=== PATIENT | male | born 1975 | race Caucasian/White ===

== ENCOUNTER 2018-09-26 11:34 | Emergency (ER) | payer OTHER ==
[~2018-09-26] VITALS: Ht 177.8 cm; Wt 95.3 kg
[2018-09-26 11:44] VITALS: BP_SYST 110
[2018-09-26] MEDS ORDERED: ONDANSETRON 4 MG ODT TAB PO ONE (12:15)
[2018-09-26] MEDS ORDERED: MORPHINE SULFATE 10 MG/ML VIAL IM ONE (12:15)
[2018-09-26 13:52] VITALS: BP_SYST 110
== END 2018-09-26 13:52 | disposition home or self-care (01) ==
LOC: SED 11:34
DX: S82.392A Other fracture of lower end of left tibia, initial encounter for closed fracture (principal); S82.832A Other fracture of upper and lower end of left fibula, initial encounter for closed fracture; W17.89XA Other fall from one level to another, initial encounter; Y93.89 Activity, other specified; Y92.89 Other specified places as the place of occurrence of the external cause; Y99.8 Other external cause status
CPT/HCPCS: 29515; 73610; 96372; 99283; J2270; Q0162